=== PATIENT | male | born 1960 | race Caucasian/White ===

== ENCOUNTER 2019-06-27 06:33 | Emergency (ER) | payer BC ==
[~2019-06-27] VITALS: Ht 170.2 cm; Wt 67.0 kg
[2019-06-27 06:36] VITALS: BP 194/105
[2019-06-27] MEDS ORDERED: CYCL-1 PO (06:58)
[2019-06-27] MEDS ORDERED: TRAM50TA2 PO (06:58)
[2019-06-27] MEDS ORDERED: DICL50TA8 PO (06:58)
[2019-06-27] MEDS ORDERED: ketorolac trometh inj. 60 MG/2 ML VIAL IM ONE (07:00)
== END 2019-06-27 07:53 | disposition home or self-care (01) ==
LOC: ER 06:34
DX: M54.5 Low back pain (principal); G89.29 Other chronic pain; Z79.899 Other long term (current) drug therapy
CPT/HCPCS: 96372; 99283; J1885

== ENCOUNTER 2019-06-29 11:49 | Inpatient (IN) | payer BC ==
[~2019-06-29] VITALS: Ht 170.2 cm; Wt 68.2 kg
[~2019-06-29 11:49] MED LIST: CYCL-1 PO; DICL50TA8 PO; TRAM50TA2 PO
[2019-06-29 12:17] LABS: BASOPHILS % (AUTO) 0.2 % (0-1); EOSINOPHILS # (AUTO) 0.1 X10'3 (0-0.9); EOSINOPHILS % (AUTO) 0.4 % (0-6); HEMATOCRIT 42.9 % (42.0-52.0); HEMOGLOBIN 14.7 g/dl (14.0-17.9); LYMPHOCYTES # (AUTO) 0.9 X10'3 (1.1-4.8); LYMPHOCYTES % (AUTO) 6.4 % (21-51); MEAN CORPUSCULAR HEMOGLOBIN 29.9 PG (27.0-31.0); MEAN CORPUSCULAR HGB CONC 34.3 g/dL (33.0-36.5); MEAN CORPUSCULAR VOLUME 87.2 FL (78-98); MEAN PLATELET VOLUME 6.7 FL (7.4-10.4); MONOCYTES # (AUTO) 0.8 X10'3 (0-0.9); MONOCYTES % (AUTO) 5.2 % (2-12); NEUTROPHILS # (AUTO) 12.8 X10'3 (1.8-7.7); NEUTROPHILS % (AUTO) 87.8 % (42-75); PLATELET COUNT 396 X10'3 (140-440); RED BLOOD COUNT 4.92 X10'6 (4.70-6.10); RED CELL DISTRIBUTION WIDTH 14.1 % (11.5-14.5); WHITE BLOOD COUNT 14.6 X10'3 (4.5-11.0)
[2019-06-29 12:29] LABS: ALANINE AMINOTRANSFERASE 29 U/L (12-78); ALBUMIN 4.6 G/DL (3.4-5.0); ALBUMIN/GLOBULIN RATIO 1.4 (1.1-1.5); ALKALINE PHOSPHATASE 68 IU/L (46-116); ANION GAP 9 (8-16); ASPARTATE AMINO TRANSFERASE 25 U/L (10-37); BILIRUBIN,TOTAL 0.9 MG/DL (0.1-1.0); BLOOD UREA NITROGEN 14 MG/DL (7-18); BUN/CREATININE RATIO 12.8 (5.4-32.0); CALCIUM 9.5 MG/DL (8.5-10.1); CHLORIDE 84 MMOL/L (99-107); CREATININE 1.09 MG/DL (0.60-1.10); GLUCOSE 117 MG/DL (70-104); POTASSIUM 3.8 MMOL/L (3.5-5.1); TOTAL CARBON DIOXIDE 21.6 MMOL/L (24-32); eGFR 69 ML/MIN
[2019-06-29 12:32] LABS: SODIUM 115 MMOL/L (135-145)
[2019-06-29] MEDS ORDERED: normal saline 1000ml 1,000 ML IV ONE (13:20)
[2019-06-29] MEDS ORDERED: morphine 2 MG/ML inj. syringe IV PRN ×2 (13:50)
[2019-06-29] MEDS ORDERED: ondansetron/PF 4mg/2ml inj IV PRN (13:50)
[2019-06-29] MEDS ORDERED: acetaminophen 325mg tablet PO PRN ×2 (13:50)
[2019-06-29] MEDS ORDERED: magnesium hydroxide 30ml (MOM) UD suspension PO PRN (13:50)
[2019-06-29] MEDS ORDERED: HYDROcodone/acetaminophen 10/325mg tab PO PRN (13:50)
[2019-06-29] MEDS ORDERED: mag hydrox/Alum hydrox/simeth 30ml oral suspension PO PRN (13:50)
[2019-06-29] MEDS: normal saline 1000ml 1,000 ML IV SCH (14:14)
[2019-06-29] MEDS ORDERED: DICL50TA8 PO (14:31)
[2019-06-29] MEDS ORDERED: TRAM50TA2 PO (14:31)
[2019-06-29] MEDS ORDERED: LISI1TAB29 PO (14:31)
[2019-06-29 14:44] LABS: CLARITY,URINE CLEAR (Clear); COLOR,URINE STRAW (Yellow); GLUCOSE, URINE NEGATIVE (Neg); KETONES,URINE TRACE mg/dl (Neg); LEUKOCYTE ESTERASE ,URINE NEGATIVE (Neg); NITRITES, URINE NEGATIVE (Neg); OCCULT BLOOD,URINE NEGATIVE (Neg); PROTEIN,URINE NEGATIVE (Neg); UROBILINOGEN,URINE 0.2 E.U/dL (0.2-1.0)
[2019-06-29 14:50] LABS: UA COLLECTION TYPE CLN CATCH MIDSTREAM
[2019-06-29] MEDS ORDERED: LISI-600 PO (15:00)
[2019-06-29] MEDS ORDERED: nicotine 21mg patch - 24 hr TD ONE (15:00)
[2019-06-29] MEDS: cloNIDine 0.1 mg tablet PO SCH ×2 (15:04→22:46)
--- NOTE | 2019-06-29 17:00 | NUR ---
Received report from DARON Gomez RN, patient arrived on unit, VSS, no acute distress, NS@100ml/hr, will continue to monitor.
--- NOTE | 2019-06-29 17:06 | NUR ---
1200cc urine output
[2019-06-29 17:22] VITALS: BP 146/99
[2019-06-29 18:00] VITALS: BP 144/98
--- NOTE | 2019-06-29 18:26 | NUR ---
Problems reprioritized. Patient report given, questions answered & plan of care reviewed with FRANKLYN Thomas.
--- NOTE | 2019-06-29 18:28 | NUR ---
Patient in room PCU 3016. I have received report from Rosalie Mayes RN and had the opportunity to ask questions and assume patient care.
[2019-06-29 20:43] LABS: ALBUMIN 3.9 G/DL (3.4-5.0); ANION GAP 9 (8-16); BLOOD UREA NITROGEN 13 MG/DL (7-18); BUN/CREATININE RATIO 12.1 (5.4-32.0); CALCIUM 8.7 MG/DL (8.5-10.1); CHLORIDE 92 MMOL/L (99-107); CREATININE 1.07 MG/DL (0.60-1.10); GLUCOSE 91 MG/DL (70-104); POTASSIUM 3.8 MMOL/L (3.5-5.1); SODIUM 126 MMOL/L (135-145); TOTAL CARBON DIOXIDE 25.4 MMOL/L (24-32); eGFR 71 ML/MIN
[2019-06-29 22:00] VITALS: BP 147/91
[2019-06-29] MEDS: HYDROcodone/acetaminophen 5mg/325mg tablet PO PRN (22:49)
[2019-06-30] MEDS: normal saline 1000ml 1,000 ML IV SCH ×2 (00:27→09:49)
[2019-06-30 00:36] LABS: BASOPHILS % (AUTO) 0.6 % (0-1); EOSINOPHILS # (AUTO) 0.2 X10'3 (0-0.9); EOSINOPHILS % (AUTO) 2.8 % (0-6); HEMATOCRIT 41.3 % (42.0-52.0); LYMPHOCYTES # (AUTO) 2.2 X10'3 (1.1-4.8); LYMPHOCYTES % (AUTO) 24.7 % (21-51); MEAN CORPUSCULAR HEMOGLOBIN 30.2 PG (27.0-31.0); MEAN CORPUSCULAR VOLUME 88.7 FL (78-98); MEAN PLATELET VOLUME 6.7 FL (7.4-10.4); MONOCYTES # (AUTO) 0.9 X10'3 (0-0.9); MONOCYTES % (AUTO) 10.1 % (2-12); NEUTROPHILS # (AUTO) 5.4 X10'3 (1.8-7.7); NEUTROPHILS % (AUTO) 61.8 % (42-75); PLATELET COUNT 344 X10'3 (140-440); RED BLOOD COUNT 4.65 X10'6 (4.70-6.10); RED CELL DISTRIBUTION WIDTH 14.4 % (11.5-14.5); WHITE BLOOD COUNT 8.8 X10'3 (4.5-11.0)
[2019-06-30 00:42] LABS: ALBUMIN 3.8 G/DL (3.4-5.0); ANION GAP 8 (8-16); BLOOD UREA NITROGEN 13 MG/DL (7-18); BUN/CREATININE RATIO 14.1 (5.4-32.0); CALCIUM 8.8 MG/DL (8.5-10.1); CHLORIDE 94 MMOL/L (99-107); CREATININE 0.92 MG/DL (0.60-1.10); GLUCOSE 97 MG/DL (70-104); POTASSIUM 3.8 MMOL/L (3.5-5.1); SODIUM 126 MMOL/L (135-145); TOTAL CARBON DIOXIDE 24.3 MMOL/L (24-32); TROPONIN I < 0.04 NG/ML (0.0-0.05); eGFR 84 ML/MIN
[2019-06-30 02:00] VITALS: BP 104/64
[2019-06-30 06:00] VITALS: BP 115/76
--- NOTE | 2019-06-30 06:14 | NUR ---
Problems reprioritized. Patient report given, questions answered & plan of care reviewed with FRANKLYN WALLS.
--- NOTE | 2019-06-30 06:33 | NUR ---
Patient in room PCU 3016. I have received report from FRANKLYN Thomas and had the opportunity to ask questions and assume patient care.
[2019-06-30 08:00] VITALS: BP_SYST 113; BP_SYST 133; BP_SYST 134; BP_DIAS 71; BP_DIAS 76; BP_DIAS 85
[2019-06-30] MEDS ORDERED: enoxaparin 40mg/0.4ml syringe SUBCUT SCH (08:00)
[2019-06-30] MEDS: cloNIDine 0.1 mg tablet PO SCH ×2 (08:56)
[2019-06-30] MEDS: HYDROcodone/acetaminophen 5mg/325mg tablet PO PRN (08:58)
[2019-06-30] MEDS ORDERED: CLON0.1T2 PO (09:27)
--- NOTE | 2019-06-30 10:23 | NUR ---
PAGER ID: [phone] MESSAGE: [id number]. pt. Garrett Trevino. BRANDI pt. orthostatic VS are supine 133/76, HR 78. sitting 134/85, HR 81. standing 113/71, HR 83. thank you. Radha [id number]
--- NOTE | 2019-06-30 11:36 | NUR ---
pt. discharged from facility at 1100. pt. walked down to [facility] accompanied by staff. pt. left with via personal vehicle. pt. IV was d/c intact. pt. has an appointment scheduled with his PCP this afternoon. pt. new meds were escripted to [facility] on [address] pt. left with all belongings.
== END 2019-06-30 11:00 | disposition home or self-care (01) | DRG 641 ==
LOC: ER 11:49 → ED HOLD 13:49 → PCU 3S 17:15
PROVIDERS: ADMIT Internal Medicine; ATTEND Internal Medicine
DX: E87.1 Hypo-osmolality and hyponatremia (principal); D72.829 Elevated white blood cell count, unspecified; F17.210 Nicotine dependence, cigarettes, uncomplicated; G89.29 Other chronic pain; I10 Essential (primary) hypertension; F10.20 Alcohol dependence, uncomplicated
CPT/HCPCS: 36415; 71045; 80048; 80053; 81003; 83605; 83880; 84145; 84300; 84443; 84484; 85025; 87040; 87081; 93005; 99285; G0378; J1650; J7030

== ENCOUNTER 2019-07-03 06:25 | Emergency (ER) | payer BC ==
[~2019-07-03] VITALS: Ht 170.2 cm; Wt 75.0 kg
[~2019-07-03 06:25] MED LIST changes: +CLON0.1T2 PO; -CYCL-1 PO
[2019-07-03] MEDS ORDERED: hydrALAZINE 20mg/ml inj. IV ONE (06:35)
--- NOTE | 2019-07-03 07:11 | NUR ---
DR MONTAGUE CANCELS THE APRESALINE DUE TO THE BP BEING LOWER NOW THAN WHEN TRIAGED. PT ASKS IF HE CAN TAKE HIS CLONIDINE THAT IS DUE AT 7AM. CHECK WITH DR MONTAGUE WHO ORDERS THAT HE CAN TAKE HIS OWN CLONIDINE 0.1MG PO. LETICIA
[2019-07-03 07:21] LABS: BASOPHILS # (AUTO) 0.1 X10'3 (0-0.2); BASOPHILS % (AUTO) 1.3 % (0-1); EOSINOPHILS # (AUTO) 0.1 X10'3 (0-0.9); EOSINOPHILS % (AUTO) 2.8 % (0-6); HEMATOCRIT 42.4 % (42.0-52.0); HEMOGLOBIN 14.2 g/dl (14.0-17.9); LYMPHOCYTES % (AUTO) 19.3 % (21-51); MEAN CORPUSCULAR HGB CONC 33.6 g/dL (33.0-36.5); MEAN CORPUSCULAR VOLUME 89.1 FL (78-98); MEAN PLATELET VOLUME 6.4 FL (7.4-10.4); MONOCYTES # (AUTO) 0.4 X10'3 (0-0.9); MONOCYTES % (AUTO) 8.6 % (2-12); NEUTROPHILS # (AUTO) 3.5 X10'3 (1.8-7.7); PLATELET COUNT 409 X10'3 (140-440); RED BLOOD COUNT 4.75 X10'6 (4.70-6.10); RED CELL DISTRIBUTION WIDTH 14.4 % (11.5-14.5); WHITE BLOOD COUNT 5.1 X10'3 (4.5-11.0)
--- NOTE | 2019-07-03 07:42 | NUR ---
PT WAS ALSO STARTED ON LISINOPRIL 30MG ON THURSDAY BY HIS DOCTOR IN [place], HE TOOK HIS DOSE ON THURSDAY AND THURSDAY. NONE TODAY.
[2019-07-03] MEDS ORDERED: LISI30TA4 PO (07:44)
[2019-07-03 07:56] LABS: ALANINE AMINOTRANSFERASE 26 U/L (12-78); ALBUMIN 4.2 G/DL (3.4-5.0); ALBUMIN/GLOBULIN RATIO 1.3 (1.1-1.5); ALKALINE PHOSPHATASE 64 IU/L (46-116); ANION GAP 10 (8-16); ASPARTATE AMINO TRANSFERASE 18 U/L (10-37); BILIRUBIN,TOTAL 0.6 MG/DL (0.1-1.0); BLOOD UREA NITROGEN 13 MG/DL (7-18); BUN/CREATININE RATIO 12.4 (5.4-32.0); CALCIUM 9.3 MG/DL (8.5-10.1); CHLORIDE 95 MMOL/L (99-107); CREATININE 1.05 MG/DL (0.60-1.10); GLUCOSE 108 MG/DL (70-104); POTASSIUM 4.4 MMOL/L (3.5-5.1); SODIUM 130 MMOL/L (135-145); TOTAL CARBON DIOXIDE 25.1 MMOL/L (24-32); TOTAL PROTEIN 7.4 G/DL (6.4-8.2); eGFR 73 ML/MIN
[2019-07-03 08:04] LABS: MAGNESIUM 2.2 MG/DL (1.5-2.4)
[2019-07-03] MEDS ORDERED: HYDR-3965 PO (08:56)
[2019-07-03 09:03] VITALS: BP 177/105
== END 2019-07-03 09:04 | disposition home or self-care (01) ==
LOC: ER 06:26
DX: I10 Essential (primary) hypertension (principal); G89.29 Other chronic pain; Z72.89 Other problems related to lifestyle; Z79.899 Other long term (current) drug therapy
CPT/HCPCS: 36415; 71045; 80053; 83735; 83880; 84484; 85025; 93005; 99285